=== PATIENT | male | born 1990 | race Two or more races ===

== ENCOUNTER 2020-02-17 01:26 | Emergency (ER) | payer BC ==
[~2020-02-17] VITALS: Ht 180.3 cm; Wt 100.0 kg
[2020-02-17 02:43] VITALS: BP 141/95
== END 2020-02-17 02:46 | disposition home or self-care (01) ==
LOC: EMS 01:26
DX: J02.9 Acute pharyngitis, unspecified (principal); Z20.828 Contact with and (suspected) exposure to other viral communicable diseases
CPT/HCPCS: 99283; U0003